=== PATIENT | female | born 1990 | race Caucasian/White ===

== ENCOUNTER 2019-10-21 05:03 | Inpatient (IN) ==
--- NOTE | 2019-10-20 12:55 | HISTORY AND PHYSICAL ---
HISTORY OF PRESENT ILLNESS: The patient is a 29-year-old white female who is at 38 and 6/7 weeks with gestational hypertension, and due to her hypertension increasing over the last week, we will move toward delivery earlier. Patient also expressed desire for permanent sterilization and has signed Medicaid tubal papers. Patient counseled about the permanency of tubal ligation, failure rate of 2 to 12/999, as well as the availability of reversible alternatives. The patient's due date is 10/29/2019. A group B strep culture was negative and, as mentioned above, increase in blood pressure in late has led to diagnosis of gestational hypertension. PAST MEDICAL HISTORY: Significant for asthma. PAST SURGICAL HISTORY: x1. PAST OB HISTORY: G 2, P 1. x1. 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 REVIEW OF SYSTEMS: Significant for migraines. FAMILY HISTORY: Significant for diabetes mellitus and high blood pressure. SOCIAL HISTORY: Tobacco use: None. Alcohol use: None. MEDICATIONS: Iron and vitamins. Another medication patient is on is labetalol 100 mg b.i.d. ALLERGIES: To sulfa, barbiturates. PHYSICAL EXAM: VITAL SIGNS: Height 5 feet 1 inch, weight 225 pounds, temperature 97.4 degrees, blood pressure 138/90, pulse of 92, respirations 20. heart rate in the 150s. HEENT: Pupils equal, round, reactive to light and accommodation. Extraocular movements intact. Oropharynx clear. NECK: Supple. No thyromegaly. LUNGS: Clear to auscultation. HEART: Regular rate and rhythm. ABDOMEN: Bowel sounds positive. Gravid, nontender. EXTREMITIES: No clubbing, cyanosis, or edema noted. NEUROLOGIC: Cranial nerves 2-12 grossly intact. Motor 5/5. DTRs 2+ bilaterally. ASSESSMENT/PLAN: A 29-year-old white female, 2, para 1 with history of section for elective repeat section. Patient had been scheduled for 39 weeks. However, her blood pressure is continuing to elevate despite blood pressure medication, and will therefore proceed 1 day earlier due to this fact. The patient counseled about the risks of surgery, including bleeding, infection, bowel or bladder injury. The patient also expressed desire for permanent sterilization and, at the time of section, we will perform tubal ligation. She was counseled about the permanency of the procedure, failure rate of 2 to 12/999, as well as the availability of reversible alternatives such as intrauterine device, control pills, patches, etcetera. cc: Merrick Dior III, MD
[2019-10-21] MEDS ORDERED: KEFZOL 1 GM/D5W 1 GM/50 ML IVPB IV PRN (05:07)
[2019-10-21] MEDS ORDERED: BICITRA PO ONE (05:09)
[2019-10-21 05:39] LABS: URINE SOURCE VOIDED
[2019-10-21] MEDS ORDERED: KEFZOL 2 GM/D5W 2 GM/50 ML IVPB IV ONE (05:43)
[2019-10-21] MEDS: LR 1,000 ML IV SCH ×2 (05:44→06:35)
[2019-10-21] MEDS ORDERED: PEPCID PO ONE (05:45)
[2019-10-21] MEDS ORDERED: REGLAN PO ONE (05:45)
[2019-10-21 05:51] LABS: BASO# 0.05 X1000 (0.0-0.2); BASO% 0.6 % (0.0-0.8); EOS# 0.33 X1000 (0.0-0.7); EOS% 3.7 % (0.0-10.0); HEMATOCRIT 34.6 % (37.0-47.0); HEMOGLOBIN 11.3 g/dL (12.0-16.0); LYMPH# 1.61 X1000 (1.2-3.4); LYMPH% 17.9 % (20.5-51.1); MCHC 32.7 g/dL (33-37); MCV 95.1 FL (81-99); MONO# 0.96 X1000 (0.11-0.59); MONO% 10.7 % (1.7-9.3); NEUT# 6.04 X1000 (1.4-6.5); NEUT% 67.1 % (42.2-75.2); PLT 278 X1000 (130-400); RBC 3.64 XMIL (4.2-5.4); RDW 13.4 % (11.5-14.5); WBC 8.99 X1000 (4.8-10.8)
[2019-10-21 05:53] LABS: BILIRUBIN URINE SMALL (NEGATIVE); BLOOD URINE NEGATIVE (NEGATIVE); COLOR YELLOW; GLUCOSE URINE NEGATIVE (NEGATIVE); KETONE URINE NEGATIVE (NEGATIVE); LEUKOCYTES URINE SMALL (NEGATIVE); NITRITE URINE NEGATIVE (NEGATIVE); PROTEIN URINE 30 mg/dL (NEGATIVE); SP GRAVITY URINE 1.024; TURBIDITY URINE HAZY (CLEAR); UROBILINOGEN URINE 2 mg/dL (NORMAL)
[2019-10-21 05:55] LABS: UR AMPHETAMINES QUAL NONE DETECTED (NONE DETECT); UR BARBITUATES QUAL NONE DETECTED (NONE DETECT); UR BENZODIAZEPIN QUAL NONE DETECTED (NONE DETECT); UR CANNABINOIDS QUAL NONE DETECTED (NONE DETECT); UR COCAINE QUAL NONE DETECTED (NONE DETECT); UR METHADONE QUAL NONE DETECTED (NONE DETECT); UR OPIATES QUAL NONE DETECTED (NONE DETECT); UR OXYCODONE QUAL NONE DETECTED (NONE DETECT); UR PCP QUAL NONE DETECTED (NONE DETECT)
[2019-10-21] MEDS ORDERED: FENTANYL ONE (06:36)
[2019-10-21] MEDS ORDERED: EPHEDRINE ONE (06:37)
[2019-10-21] MEDS ORDERED: SODIUM CHLORIDE 0.9% 10 ML ONE (06:37)
[2019-10-21] MEDS ORDERED: PITOCIN ONE (06:38)
[2019-10-21] MEDS ORDERED: ZOFRAN ONE (06:55)
[2019-10-21] MEDS ORDERED: TORADOL ONE (07:35)
[2019-10-21] MEDS ORDERED: MORPHINE ONE ×2 (07:36→07:37)
[2019-10-21] MEDS ORDERED: AMBIEN PO PRN (07:58)
[2019-10-21] MEDS ORDERED: DULCOLAX PR PRN (07:58)
[2019-10-21] MEDS ORDERED: PERCOCET-5 PO PRN (07:58)
[2019-10-21] MEDS ORDERED: DEMEROL IM PRN (07:58)
[2019-10-21] MEDS ORDERED: PITOCIN IM PRN (07:58)
[2019-10-21] MEDS ORDERED: PHENERGAN IM PRN (07:58)
[2019-10-21] MEDS ORDERED: MYLICON PO PRN (07:58)
[2019-10-21] MEDS ORDERED: M-M-R II VACCINE SUBQ ONE (07:58)
[2019-10-21] MEDS ORDERED: ATARAX PO PRN (07:58)
[2019-10-21] MEDS ORDERED: DEMEROL PO PRN ×2 (07:58)
[2019-10-21] MEDS ORDERED: HYDROXYZINE IM PRN (07:58)
[2019-10-21] MEDS ORDERED: PITOCIN 20 UNITS/NS 20 UNITS/1,000 ML IV.SOLN IV ONE (07:58)
[2019-10-21] MEDS ORDERED: BOOSTRIX VACCINE IM ONE (07:58)
[2019-10-21] MEDS ORDERED: NARCAN IV PRN (08:00)
[2019-10-21] MEDS ORDERED: BENADRYL IV PRN (08:00)
[2019-10-21] MEDS ORDERED: PHENERGAN IV PRN (08:00)
[2019-10-21] MEDS ORDERED: LR 1,000 ML IV SCH (08:00)
[2019-10-21] MEDS ORDERED: SODIUM CHLORIDE 0.9% INJ PRN (08:00)
--- NOTE | 2019-10-21 08:31 | OPERATIVE NOTE ---
PROCEDURE DATE: 10/21/2019 PREOPERATIVE DIAGNOSIS: Intrauterine at 38 and 6/7 weeks with gestational hypertension, for repeat section, and the patient also desires permanent sterilization. POSTOPERATIVE DIAGNOSIS: Intrauterine at 38 and 6/7 weeks with gestational hypertension, for repeat section, and the patient also desires permanent sterilization, with operative delivery of a female infant, 7 pounds 13 ounces, with Apgars of 9 and 9 at 0705 on 10/21/2019. PROCEDURES PERFORMED: Repeat low-transverse section and bilateral tubal ligation. SURGEON: Merrick Dior III, M.D. CENSUS CLERK: MONSTER. ANESTHESIA: Spinal, Dr. Mesa. FINDINGS: Normal-appearing uterus, tubes, and ovaries. COMPLICATIONS: None. ESTIMATED BLOOD LOSS: 600 mL. SPECIMENS REMOVED: Right and left fallopian tube segments. COUNTS: All counts were correct x3. INDICATIONS: The patient is a 29-year-old, white female, G2, P1, at 38 and 6/7 weeks with gestational hypertension that is worsening. Will proceed with operative delivery due to this fact. The patient has also expressed a desire for permanent sterilization. The patient was counseled about the risks of surgery, including bleeding, infection, bowel or bladder injury. The patient was then counseled about the permanency of tubal ligation, failure rate of 2 to 12/999, as well as the availability of reversible alternatives, such as IUD, control pills, patches, etc. DESCRIPTION OF PROCEDURE: The patient was taken to Labor and Delivery OR. Spinal anesthesia was placed, and the patient was placed in supine position with a roll under the right hip. Emery catheter was placed. She was then prepped and draped in a sterile fashion. Adequate anesthesia was noted by using Allis clamps on skin, and then a Pfannenstiel skin incision was made on the lower abdomen using a scalpel. This was taken down sharply to the fascial layer. A small kathy was made in the rectus fascia. The fascial incision was extended bilaterally by curved Marinelli scissors, and then blunt and sharp dissection of the superior and inferior aspects of the rectus fascia were then performed. I then entered the peritoneal layer bluntly, and then this incision was extended superiorly and inferiorly with care taken to avoid the bladder. Bladder blade was placed into the abdominal cavity at this point in time, and bladder reflection was created using Metzenbaum scissors. A transverse incision was made on the lower uterine segment using a scalpel. Entry into the amniotic cavity was accomplished, and there was slight green-tinged amniotic fluid noted, white in color. The presenting was left OT presentation, and the head was then elevated toward the hysterotomy site, bulb suction of nose and mouth, and with gentle fundal pressure, the rest of the body was delivered atraumatically. Umbilical cord was clamped twice and cut. Infant handed to nursery nurse in attendance for delivery. Cord blood sample was obtained at this time. Placenta was then manually extracted. The uterus was then exteriorized. Wet lap was placed around the uterus. Dry lap was then used to curette the uterine cavity of clots and debris x2. Uterine incision was then closed using 0 chromic in a running locking fashion x1. A small area of oozing was noted in midline, and this was made hemostatic with a [id number] stitch of 0 chromic. Inspection showed good hemostasis. At this point in time, attention was then turned to the right fallopian tube, which was grasped near the isthmus with a Cumberland clamp, and then a hole was made in the mesosalpinx with electrocautery. Then, 0 plain suture was then used to ligate a portion of the fallopian tube on the right side, and then this was excised using Metzenbaum scissors, and then handed off to be placed in a specimen container. Electrocautery was then applied to the open ends of the fallopian tube. Attention was then turned to the left fallopian tube, which was grasped with Cumberland clamp, and then a hole was made in the mesosalpinx using electrocautery. Zero plain suture was then used to ligate a portion of the fallopian tube, which was then excised using Metzenbaum scissors. Electrocautery was then once again applied to this area, and good hemostasis was noted to these open areas of the fallopian tube. The left segment was handed off to be placed in a specimen container. The posterior cul-de- sac was then irrigated copiously. Then, the uterus was replaced back into the abdominal cavity. Right and left pericolic gutters were cleansed using moist lap sponges. Uterine incision and bladder reflection were inspected. Good hemostasis was noted. The peritoneal layer was then closed using 2-0 chromic in a running fashion x1. Interrupted stitches of 2-0 chromic were used to reapproximate the rectus muscle. The fascial layer was then closed using 0 PDS in a running fashion x1. Subcutaneous layer was then irrigated copiously. Electrocautery was used to obtain hemostasis, and then interrupted stitches of 2-0 chromic were used to reapproximate the subcutaneous layer, and then salud were used to close the skin. The patient tolerated the procedure well, and was taken to the recovery room in stable condition. All counts were correct x3. cc: Merrick Dior III, MD
[2019-10-21] MEDS: MORPHINE PCA IV PRN ×2 (08:58→13:47)
[2019-10-21] MEDS: MYLICON PO SCH ×4 (10:49→20:30)
[2019-10-21] MEDS: PITOCIN 10 UNITS/NS 1,000 ML IV SCH ×2 (11:14→19:06)
[2019-10-21] MEDS: TORADOL IV SCH ×2 (13:50→20:02)
[2019-10-21] MEDS ORDERED: LASIX IV ONE (17:37)
[2019-10-21] MEDS: PERICOLACE PO SCH (20:30)
[2019-10-22] MEDS: TORADOL IV SCH ×2 (01:57→06:57)
[2019-10-22] MEDS: LR 1,000 ML IV SCH (02:58)
[2019-10-22 05:27] LABS: BASO# 0.03 X1000 (0.0-0.2); BASO% 0.3 % (0.0-0.8); EOS# 0.26 X1000 (0.0-0.7); EOS% 2.6 % (0.0-10.0); HEMATOCRIT 30.2 % (37.0-47.0); HEMOGLOBIN 9.9 g/dL (12.0-16.0); IMM GRAN# 0.02 X1000 (0.0-0.04); IMM GRAN% 0.2 % (0.0-0.5); LYMPH# 0.98 X1000 (1.2-3.4); LYMPH% 9.8 % (20.5-51.1); MCH 31.4 PG (27-31); MCHC 32.8 g/dL (33-37); MCV 95.9 FL (81-99); MONO# 0.88 X1000 (0.11-0.59); MONO% 8.8 % (1.7-9.3); MPV 8.6 FL (7.4-10.4); NEUT# 7.84 X1000 (1.4-6.5); NEUT% 78.3 % (42.2-75.2); PLT 253 X1000 (130-400); RBC 3.15 XMIL (4.2-5.4); RDW 13.4 % (11.5-14.5); WBC 10.01 X1000 (4.8-10.8)
[2019-10-22] MEDS ORDERED: LR 1,000 ML IV SCH (07:59)
[2019-10-22] MEDS: MYLICON PO SCH ×4 (10:27→20:23)
[2019-10-22] MEDS: PERCOCET-10 PO PRN ×3 (11:15→20:24)
[2019-10-22] MEDS: MOTRIN PO PRN ×2 (11:23→20:24)
[2019-10-22] MEDS: PERICOLACE PO SCH (20:24)
[2019-10-23] MEDS: PERCOCET-10 PO PRN ×2 (02:36→09:02)
[2019-10-23] MEDS: MOTRIN PO PRN (05:42)
[2019-10-23 08:45] VITALS: BP 143/79
[2019-10-23] MEDS: MYLICON PO SCH (09:02)
--- NOTE | 2019-10-25 10:08 | DISCHARGE SUMMARY ---
ADMISSION DATE: 10/21/2019 DISCHARGE DATE: 10/23/2019 ADMISSION DIAGNOSIS: A 29-year-old white female, 2, para 1 with history of section for elective repeat section at 38 weeks and 6/7 weeks due to gestational hypertension. FINAL DIAGNOSIS: 1. A 29-year-old white female, 2, para 1 with history of section for elective repeat section at 38 weeks and 6/7 weeks due to gestational hypertension. 2. Operative delivery of a female infant, 7 pounds 13 ounces with Apgars of 9 and 9 at 0705 on 10/21/2019. PROCEDURES: Repeat low transverse and bilateral tubal ligation. BRIEF HISTORY: The patient is a 29-year-old white female, 38 and 6/7weeks with gestational hypertension with increasing blood pressure values over the past week, move toward earlier delivery. The patient also expressed desire for permanent sterilization and has signed Medicaid tubal papers. Her care shows a due date of 10/29/2019. Group B strep culture was negative and her blood pressure has increased in late . PAST MEDICAL HISTORY: Asthma. PAST SURGICAL HISTORY: x1. PAST OB HISTORY: G2, P1, x1. 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 REVIEW OF SYSTEMS: Significant for migraines. FAMILY HISTORY: Diabetes mellitus and high blood pressure. SOCIAL HISTORY: Tobacco use none. Alcohol use none. MEDICATIONS: Iron and vitamins and labetalol 100 mg b.i.d. ALLERGIES: To sulfa and barbiturates. PHYSICAL EXAMINATION: Vital Signs: Height 5 feet 1 inch, weight 225 pounds, temperature 97.4 degrees, blood pressure 138/90, pulse of 92, respirations 20. heart rate in the 150s. HEENT: Pupils equal, round, reactive to light and accommodation. Extraocular movements intact. Oropharynx clear. Neck: Supple. No thyromegaly. Lungs: Clear to auscultation. Heart: Regular rate and rhythm. Abdomen: Gravid, nontender. Extremities: No clubbing, cyanosis, or edema noted. Neurologic: Cranial nerves II through XII grossly intact. Motor 5/5. DTRs 2+ bilaterally. A 29-year-old white female, G2, P1, at 38 and 6/7 weeks with increasing blood pressure values and due to gestational hypertension will proceed with operative delivery. The patient also expressed desire for permanent sterilization so at the time of , we will also perform tubal ligation. HOSPITAL COURSE: The patient had a repeat section and tubal ligation performed and delivery of a female , 7 pounds 13 ounces with Apgars of 9 and 9 at 0705 on 10/21/2019. Postoperative care, her blood pressure normalized and was not in need of blood pressure medication. Her postoperative hemoglobin was 9.9 and postoperative hematocrit was 30.2, and she was advanced on her diet and ambulated without difficulty, and on postoperative day #2 she had positive flatus, had stable vital signs and was afebrile and felt that she could be discharged home. DISCHARGE PLANS: The patient is to follow up in 1 week for staple removal. She is instructed on pelvic rest and lifting precautions for the next 6 weeks. She is also given instructions to call for temperature greater than 101, heavy vaginal bleeding, or severe abdominal pain. She is given prescriptions for Motrin, Percocet 10, iron. Labetalol was discontinued. vitamins were discontinued, and she was also given Colace 100 mg. So the medicines to be discharged on: Motrin, Percocet 10, Colace and iron. cc: Merrick Dior III, MD
== END 2019-10-23 11:50 | disposition home or self-care (01) | DRG 785 ==
LOC: LD 05:03
PROVIDERS: ADMIT Obstetrics & Gynecology; ATTEND Obstetrics & Gynecology